=== PATIENT | female | born 1955 | race Caucasian/White ===

== ENCOUNTER 2024-02-24 19:05 | Emergency (ER) | payer BC ==
[~2024-02-24] VITALS: Ht 162.6 cm; Wt 77.1 kg
[2024-02-24] MEDS ORDERED: HYDROcodone 5-APAP 325 TAB PO ONE (20:50)
[2024-02-24] MEDS ORDERED: RX Prepack 6 Tabs Oxycodone 5mg UD ONE (20:50)
[2024-02-25] MEDS ORDERED: Roxicodone5 MG PO (09:12)
== END 2024-02-24 21:15 | disposition home or self-care (01) ==
LOC: ER 19:05
DX: S52.571A Other intraarticular fracture of lower end of right radius, initial encounter for closed fracture (principal); S52.611A Displaced fracture of right ulna styloid process, initial encounter for closed fracture; W19.XXXA Unspecified fall, initial encounter
CPT/HCPCS: 29125; 73110; 99283-25; A9270